=== PATIENT | female | born 1965 | race Caucasian/White ===

== ENCOUNTER 2020-02-20 06:14 | Day surgery (SDC) | payer MEDICAID, SELFPAY ==
[~2020-02-20] VITALS: Ht 157.5 cm; Wt 65.8 kg
[2020-02-20] MEDS ORDERED: ONDANSETRON HCL 4 MG/2 ML VIAL IVP PRN (08:00)
[2020-02-20] MEDS ORDERED: KETOROLAC TROMETHAMINE 30 MG VIAL IVP PRN ×2 (08:00→08:45)
[2020-02-20] MEDS ORDERED: HYDROmorphone 2 MG/ML VIAL IVP PRN (08:00)
[2020-02-20] MEDS ORDERED: IBUPROFEN 800 MG TABLET PO PRN (08:00)
[2020-02-20] MEDS ORDERED: METOCLOPRAMIDE HCL 10 MG/2 ML VIAL IVP PRN (08:45)
[2020-02-20] MEDS ORDERED: HYDROmorphone 1 MG INJ. 1 MG/ML AMPUL IVP PRN (08:45)
[2020-02-20] MEDS ORDERED: CEFAZOLIN 2 GM IVPB PREMIX 50 ML IV ONE (09:55)
[2020-02-20] MEDS ORDERED: ONDANSETRON HCL 4 MG/2 ML VIAL ONE (09:55)
[2020-02-20] MEDS ORDERED: NEOSTIGMINE METHYLSULFATE 1 MG/ML, 10 ML VIAL ONE (09:55)
[2020-02-20] MEDS ORDERED: GLYCOPYRROLATE 0.2 MG/ML VIAL ONE (09:55)
[2020-02-20] MEDS ORDERED: WATER FOR IRRIGATION,STERILE 1,000 ML IRRIG.SOLN IR ONE (09:55)
[2020-02-20] MEDS ORDERED: ROCURONIUM BROMIDE 10 MG/ML (ZEMURON) ONE (09:55)
[2020-02-20] MEDS ORDERED: LIDOCAINE 1% 10 MG/ML, 20 ML MDV ONE (09:55)
[2020-02-20] MEDS ORDERED: LR 1,000 ML IV.SOLN IV ONE (09:55)
[2020-02-20] MEDS ORDERED: fentaNYL CITRATE/PF 100 MCG/2 ML AMP ONE (09:55)
[2020-02-20] MEDS ORDERED: NS IRRIG SOLN 1000 ML IR ONE (09:55)
[2020-02-20] MEDS ORDERED: SUCCINYLCHOLINE CHLORIDE 20 MG/ML(QUELICIN) ONE (09:55)
[2020-02-20] MEDS ORDERED: NS 1000 ML IV.SOLN IV ONE (09:55)
[2020-02-20] MEDS ORDERED: PROPOFOL 200MG/ 20ML VIAL (DIPRIVAN) IV ONE (09:55)
[2020-02-20] MEDS ORDERED: SEVOFLURANE 15 MIN GAS INH ONE (09:55)
[2020-02-20] MEDS ORDERED: MEPERIDINE HCL/PF 25 MG/ML DISP.SYRIN IVP ONE (10:00)
[2020-02-20] MEDS ORDERED: MEPERIDINE HCL/PF 25 MG/ML DISP.SYRIN ONE (10:15)
[2020-02-20] MEDS ORDERED: METOCLOPRAMIDE HCL 10 MG/2 ML VIAL ONE (10:20)
[2020-02-20 11:03] VITALS: BP_SYST 122
[2020-02-20] MEDS: LR 1,000 ML IV SCH ×2 (11:14→16:00)
[2020-02-20] MEDS ORDERED: LEVO175T2 PO (11:26)
[2020-02-20] MEDS ORDERED: IBUP100T8 PO (11:26)
[2020-02-20] MEDS ORDERED: METRONIDAZOLE GEL (11:26)
[2020-02-20] MEDS ORDERED: FLUT16SP16 NS (11:26)
[2020-02-20] MEDS ORDERED: CETI10CA PO (11:26)
[2020-02-20 12:03] VITALS: BP_SYST 102
[2020-02-20 16:14] VITALS: BP_SYST 98
[2020-02-20] MEDS: OXYCODONE/ACETAMINOPHEN 5-325 TABLET PO PRN ×2 (18:00→22:10)
[2020-02-20 20:00] VITALS: BP_SYST 102
[2020-02-20] MEDS: DOCUSATE SODIUM 100 MG CAPSULE PO PRN (22:14)
[2020-02-20] MEDS: LORATADINE 10 MG TABLET PO SCH (23:33)
[2020-02-20] MEDS: SIMETHICONE 80 MG TAB.CHEW PO PRN (23:36)
[2020-02-21 00:12] VITALS: BP_SYST 98
[2020-02-21] MEDS: OXYCODONE/ACETAMINOPHEN 5-325 TABLET PO PRN ×3 (05:04→16:46)
[2020-02-21] MEDS ORDERED: LEVOTHYROXINE SODIUM 0.05 MG TABLET PO SCH (07:00)
[2020-02-21 08:00] VITALS: BP_SYST 117
[2020-02-21] MEDS: LORATADINE 10 MG TABLET PO SCH (08:33)
[2020-02-21] MEDS: DOCUSATE SODIUM 100 MG CAPSULE PO PRN (08:45)
[2020-02-21] MEDS: SIMETHICONE 80 MG TAB.CHEW PO PRN (08:45)
[2020-02-21 12:00] VITALS: BP_SYST 111
[2020-02-21 16:00] VITALS: BP_SYST 100
[2020-02-21 18:30] VITALS: BP_SYST 100
== END 2020-02-21 19:52 | disposition home or self-care (01) ==
LOC: SMU 06:14 → SDS 06:14 → SMU 10:37 → SDS 02-21 19:52
PROVIDERS: ATTEND Obstetrics & Gynecology
DX: N95.0 Postmenopausal bleeding (principal); N72 Inflammatory disease of cervix uteri; N85.00 Endometrial hyperplasia, unspecified; Z20.828 Contact with and (suspected) exposure to other viral communicable diseases
CPT/HCPCS: 36415; 58550; 86886; 86900; 86901; 88307; C1727; J0330; J0690; J1885; J2001; J2175; J2405; J2704; J2710; J2765; J3010; J3490; J7030; J7120; S2900; U0003; E0190